=== PATIENT | female | born 1995 | race Caucasian/White ===

== ENCOUNTER 2017-12-22 00:36 | Emergency (ER) | payer BC ==
[2017-12-22 00:44] VITALS: BP 100/66; PULSE 74; TEMP 98.7; BMI 22.8
[2017-12-22] MEDS ORDERED: CEPHALEXIN 250 MG/5 ML ORAL SUSPENSION PO ONE (00:56)
[2017-12-22] MEDS ORDERED: ONDANSETRON 4 MG TABLET PO ONE ×2 (00:56→01:00)
[2017-12-22] MEDS ORDERED: CEPHALEXIN MONOHYDRATE 500 MG CAPSULE (UD) PO ONE (01:00)
[2017-12-22] MEDS ORDERED: CEPHALEXIN MONOHYDRATE 500 MG CAPSULE (UD) ONE (01:00)
--- NOTE | 2017-12-22 01:00 | PDOC ---
History of Present Illness - General Chief Complaint: Urinary Problem Stated Complaint: UTI Time Seen by Provider: 12/22/17 00:38 History Source: Patient Exam Limitations: No Limitations - History of Present Illness Initial Comments: 12/22/17 01:00 21 year old F c/ no pmh p/w dysuria, urinary hesitance x 3 days. Denies vaginal discharge. States currently finishing up her menstrual cycle. No fevers, chills, abdominal pain or diarrhea. Has had prior hx of UTIs. Past History - Past Medical History Allergies/Adverse Reactions: Allergies Allergy/AdvReac Type Severity Reaction Status Date / Time No Known Allergies Allergy Unverified 12/22/17 00:37 Home Medications: Ambulatory Orders Cephalexin Monohydrate [Keflex -] 500 mg PO BID #14 capsule 12/22/17 Methylphenidate HCl [Concerta] 36 mg PO DAILY 12/22/17 Ondansetron HCl [Zofran] 4 mg PO Q8H PRN #10 tablet 12/22/17 Phenazopyridine HCl [Pyridium] 200 mg PO Q8H PRN #6 tablet 12/22/17 COPD: No Psychiatric Problems: Yes (ADD) - Suicide/Smoking/Psychosocial Hx Smoking History: Never smoked Review of Systems - Review of Systems Able to Perform ROS?: Yes Comments:: 12/22/17 01:02 GENERAL/CONSTITUTIONAL: No fever or chills. No weakness. HEAD, EYES, EARS, NOSE AND THROAT: No change in vision. No ear pain or discharge. No sore throat. CARDIOVASCULAR: No chest pain or shortness of breath. RESPIRATORY: No cough, wheezing, or hemoptysis. GASTROINTESTINAL: No nausea, vomiting, diarrhea or constipation. GENITOURINARY: + dysuria. frequency, or change in urination. MUSCULOSKELETAL: No joint or muscle swelling or pain. No neck or back pain. SKIN: No rash NEUROLOGIC: No headache, vertigo, loss of consciousness, or change in strength/ sensation. ENDOCRINE: No increased thirst. No abnormal weight change. HEMATOLOGIC/LYMPHATIC: No anemia, easy bleeding, or history of blood clots. ALLERGIC/IMMUNOLOGIC: No hives or skin allergy. *Physical Exam - Vital Signs Last Vital Signs Temp Pulse Resp BP Pulse Ox 98.7 F 74 16 100/66 100 12/22/17 00:39 12/22/17 00:39 12/22/17 00:39 12/22/17 00:39 12/22/17 00:39 - Physical Exam Comments: 12/22/17 01:03 GENERAL: Awake, alert, and fully oriented, in no acute distress HEAD: No signs of trauma EYES: EOMI, sclera anicteric, conjunctiva clear ENT: Auricles normal inspection, hearing grossly normal, nares patent, Moist mucosa NECK: Normal ROM, supple ABDOMEN: Soft, nontender, normoactive bowel sounds. No guarding, no rebound. No masses EXTREMITIES: Normal range of motion, no edema. No clubbing or cyanosis. No cords, erythema, or tenderness NEUROLOGICAL: Cranial nerves II through XII grossly intact. Normal speech, normal gait SKIN: Warm, Dry, normal turgor, no rashes or lesions noted. Medical Decision Making - Medical Decision Making 12/22/17 01:01 Vital Signs Temp Pulse Resp BP Pulse Ox 98.7 F 74 16 100/66 100 12/22/17 00:39 12/22/17 00:39 12/22/17 00:39 12/22/17 00:39 12/22/17 00:39 Pt symptom's clinically consistent with UTI. Will prescribe keflex. Pt reports she gets nauseous after antibiotics. Will prescribe zofran. Will send urine test, UA/UC. I instructed the patient to call back in the next several days for the urine culture results. Pt verbalizes understanding and agrees with plan. *DC/Admit/Observation/Transfer Diagnosis at time of Disposition: UTI (urinary tract infection) Qualifiers: Urinary tract infection type: site unspecified Hematuria presence: without hematuria Qualified Code(s): N39.0 - Urinary tract infection, site not specified - Discharge Dispostion Disposition: HOME Condition at time of disposition: Stable Decision to Admit order: No - Prescriptions Prescriptions: Cephalexin Monohydrate [Keflex -] 500 mg PO BID #14 capsule Ondansetron HCl [Zofran] 4 mg PO Q8H PRN #10 tablet PRN Reason: Nausea Phenazopyridine HCl [Pyridium] 200 mg PO Q8H PRN #6 tablet PRN Reason: Bladder Pain - Referrals Referrals: Celia Monroy [Primary Care Provider] - - Patient Instructions Printed Discharge Instructions: DI for Urinary Tract Infection (UTI) Additional Instructions: Please take the antibiotics (cephalexin) every 12 hours for 7 days. For nausea, please take a tablet of zofran every 8 hours as needed. For bladder pain, take the pyridium as prescribed. This will likely color your urine orange. Drink plenty of fluids and rest. Please call back at [phone] for the urine culture results in the next 48 to 72 hours. - Post Discharge Activity
[2017-12-22] MEDS ORDERED: PHENAZOPYRIDINE HCL 100 MG TABLET (FP) PO ONE (01:07)
[2017-12-22] MEDS ORDERED: PHENAZOPYRIDINE HCL 100 MG TABLET (FP) ONE (01:07)
[2017-12-22 02:03] LABS: URINE APPEARANCE SLCLOUDY; URINE BILIRUBIN NEGATIVE (<2.0 mg/dL); URINE COLOR DKYELLOW; URINE GLUCOSE (UA) NEGATIVE (NEGATIVE); URINE KETONE NEGATIVE (NEGATIVE); URINE LEUK ESTERASE TRACE (NEGATIVE); URINE NITRITE NEGATIVE (NEGATIVE); URINE PROTEIN NEGATIVE (NEGATIVE); URINE UROBILINOGEN NEGATIVE mg/dL (0.2-1.0)
[2017-12-22 02:05] LABS: HCG,QUALITATIVE URINE NEGATIVE
[2017-12-22 02:07] LABS: EPI CELLS RARE /HPF (FEW); URINE MUCUS MODERATE
== END 2017-12-22 01:09 | disposition home or self-care (01) ==
LOC: FER 00:36
DX: N39.0 Urinary tract infection, site not specified (principal)
CPT/HCPCS: 81003; 81015; 84703; 87086; 99282-25

== ENCOUNTER 2021-05-08 00:46 | Emergency (ER) | payer BC ==
[2021-05-08 00:59] VITALS: BP 112/65; PULSE 80; TEMP 98.6; BMI 21.9
[2021-05-08] MEDS ORDERED: CEPHALEXIN MONOHYDRATE 500 MG CAPSULE (UD) PO ONE (02:09)
[2021-05-08] MEDS ORDERED: CEPHALEXIN MONOHYDRATE 500 MG CAPSULE (UD) ONE (02:12)
== END 2021-05-08 02:16 | disposition home or self-care (01) ==
LOC: FER 00:46
DX: L03.115 Cellulitis of right lower limb (principal); B09 Unspecified viral infection characterized by skin and mucous membrane lesions
CPT/HCPCS: 99283-25